=== PATIENT | female | born 2000 | race Caucasian/White ===

== ENCOUNTER 2023-10-16 09:59 | Outpatient (AMB) | payer BC, SELFPAY ==
--- NOTE | 2023-10-16 10:04 | A.OFFPC_ITS ---
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 Intake Note: pt is here for new patient appointment to establish care, patient states last pap was 09/2021 done while at [facility] Certified Phlebotomy Technician Required: No Allergies amoxicillin Allergy (Mild, Verified 10/16/23 10:40) Swelling shellfish derived Allergy (Mild, Verified 10/16/23 10:40) Difficulty Swallowing sulfamethoxazole [From Bactrim] Allergy (Mild, Verified 10/16/23 10:40) Swelling trimethoprim [From Bactrim] Allergy (Mild, Verified 10/16/23 10:40) Swelling Medication List - Last Reconciled 10/16/23 by Gladis Daley MD desvenlafaxine succinate ER 100 mg PO QAM Tobacco use date assessed: 10/16/23 Dental Screening Dental Screen Date: 10/16/23 Did you have a dental visit in the last 12 months?: Yes Did you have a dental problem in the last 6 months where you did not have access to dental care?: No Was dental information given to patient?: Patient has dentist HPI 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 She had her last Pap smear at [facility] when she was in 2021, which came back normal per patient. Has depression and anxiety currently followed by psychiatry currently on Pristiq which has been helping. [facility] Medical History (Updated 10/16/23 @ 10:59 by Gladis Daley MD) Refused influenza vaccine Hx of Anxiety and depression Cholestasis during Hyperemesis gravidarum Surgical History Hx of colonoscopy Family History (Updated 10/16/23 @ 10:11 by Richie Gurrola CMA) Mother Sjogren syndrome Father Colon cancer Social History (Updated 10/16/23 @ 10:11 by Richie Gurrola CMA) Housing: Apartment Alcohol intake: never Patient Tobacco Use Status: Never used Tobacco e-Cigarette/Vaping Use: Never Used Substance Use Type: Marijuana service: No Current occupational status: unemployed Current occupational exposures/hazards: No Cognitive needs: No Hearing needs: No Vision needs: No Female Reproductive History Menstrual Date of last menstrual period: 10/09/23 control method: none Total pregnancies: 2 Full term: 1 Number of Living Children: 1 Ab induced: 1 History of abnormal pap smear: No Other: seen by OBGYN in [facility] Questionnaire PHQ-9 Over the last 2 weeks, how often have you been bothered by any of the following problems? 1. Little interest or pleasure in doing things: not at all 2. Feeling down, depressed, or hopeless: more than half the days 3. Trouble falling or staying asleep, or sleeping too much: several days 4. Feeling tired or having little energy: more than half the days 5. Poor appetite or overeating: nearly every day 6. Feeling bad about yourself - or that you are a failure or have let yourself or your family down: more than half the days 7. Trouble concentrating on things, such as reading the newspaper or watching television: several days 8. Moving or speaking so slowly that other people could have noticed. Or the opposite - being so fidgety or restless that you have been moving around a lot more than usual: not at all 9. Thoughts that you would be better off or of hurting yourself in some way: not at all Total score: 11 Depression Screening Interpretation: Positive ([facility] [place] [facility] Depression Screening Follow- up: Existing condition, In treatment and Community Mental Health Worker F/U Depression Screening Done: Yes 67239 - PHQ-9 Billing: Yes Source: Developed by Drs. Nimesh Castillo, Jada Estrada, Jose Luis Bonilla and colleagues, with an educational hardy from [employer]. Thrive Questionnaire Date Thrive assessed: 10/16/23 I am a: Patient What is your living situation today?: I have a steady place to live Within the past 12 months, did the food you bought not last and you didn't have the money to get more?: Never true Within the past 12 months, did you worry whether your food would run out before you got money to buy more?: Never true Do you have trouble paying for medicines?: No Do you have trouble getting transportation to medical appointments?: No Do you have trouble paying your heating and electricity bill?: Yes Do you have trouble taking care of your child, family member or friend?: No Do you have trouble with day-to-day activities such as bathing, preparing meals, shopping, managing finances, etc.?: No Are you currently unemployed and looking for a job?: No Are you interested in more education?: No Please select the resources that you would like help with: Utilities Currently or been in a relationship where the following occur: No concerns reported THRIVE Score: 1 AUDIT C Alcohol Use Questionnaire (AUDIT-C) 1. How often do you have a drink containing alcohol?: Monthly or less 2. How many drinks containing alcohol do you have on a typical day when you are drinking?: 1 or 2 3. How often do you have six or more drinks on one occasion?: Never Total Score: 1 Score Reviewed/Action Taken: Yes MALINDA-7 AMB Questionnaire MALINDA-7 Date MALINDA - 7 assessed: 10/16/23 Feeling nervous, anxious, or on edge: 3 = Nearly every day Not being able to stop or control worryin = Nearly every day Worrying too much about different things: 1 = Several days Trouble relaxin = Nearly every day Being so restless that it is hard to sit still: 2 = More than half the days Becoming easily annoyed or irritable: 3 = Nearly every day Feeling afraid as if something awful might happen: 2 = More than half the days Total MALINDA-7 score (0-4 normal; 5-9 mild; 10-14 moderate; 15-21 severe): 17 Source: Developed by Drs. Nimesh Castillo, Jada Estrada, Jose Luis Bonilla and colleagues, with an educational hardy from [employer]. MALINDA-7 Assessment Billing MALINDA-7 Assessment Tool: MALINDA-7 Assessment 21071 Review of Systems Const Denies body aches, Denies fatigue, Denies fever(s), Denies headache(s) and Denies weakness Eyes Denies change in vision ENT Denies dizziness, Denies headache(s), Denies nasal congestion and Denies nasal discharge Card Denies chest pain, Denies lightheadedness, Denies palpitations and Denies dyspnea Resp Denies chest congestion, Denies cough, Denies dyspnea and Denies wheezing GI Denies abdominal pain, Denies change in bowel habits and Denies heartburn Denies hematuria, Denies urinary frequency, Denies dysuria and Denies urinary urgency Musc Reports no additional complaints Skin/Breast Denies breast pain, Denies breast mass, Denies lesions and Denies rash Neuro Denies dizziness, Denies headache(s) and Denies weakness Psych Reports as per HPI Endo Denies fatigue, Denies polydipsia, Denies polyuria and Denies palpitations Cade/Lymph Denies easy bruising Aller/Immun Denies seasonal rhinorrhea and Denies wheezing Physical exam (Primary Care) Vital Signs: Last Vital Signs Pulse 84 10/16/23 10:06 BP 130/80 10/16/23 10:06 Pulse Ox 98 10/16/23 10:06 BMI result Body Mass Index 26.6 Tobacco/Smoking Status: Tobacco use Status Tobacco use date assessed 10/16/23 10/16/23 10:14 Patient Tobacco Use Status Never used Tobacco 10/16/23 10:14 e-Cigarette/Vaping Use Never Used 10/16/23 10:14 PHQ-9: PHQ-9 Score PHQ-9: Total score 11 10/16/23 10:56 Depression Screening Interpretation: Positive (Currently seeing psychiatrist in [place] [facility] , currently on Pristiq) Depression Screening Follow- up: Existing condition, In treatment and Community Mental Health Worker F/U Thrive Assessment: Date of Thrive Assessment Date Thrive assessed 10/16/23 10/16/23 10:14 Currently or been in a relationship where the following occur: No concerns reported Const General: no acute distress and alert Orientation/consciousness: patient oriented x3 HENMT Head: Yes normocephalic and Yes atraumatic Ears: external ears normal, TM's normal bilaterally and EAC's normal General nose exam: Normal external nose present and No nasal discharge present Face and sinus: Yes face symmetric Mouth: Normal oral and palatal mucosa present, lip normal, tongue normal, oropharynx normal and moist mucous membranes Eyes General: appearance normal, both eyes and all related structures Eyelids: Yes eyelids normal Conjunctivae: conjunctivae normal Sclerae: sclerae normal Pupils: Equal, round and reactive pupils present EOM: EOMs intact bilaterally Neck Neck: Yes full ROM, Yes no lymphadenopathy and Yes supple Thyroid: Thyroid normal Chest Breast/axilla palpation: normal palpation of the breasts Resp Effort & Inspection: normal respiratory effort and able to speak in complete sentences Auscultation: clear to auscultation bilaterally Cardio Rate: regular rate Rhythm: regular rhythm Heart sounds: S1 normal heart sound present and S2 normal heart sound present GI Palpation (GI): Soft to palpation, nontender, no guarding and no masses Auscultation: normal bowel sounds General: Yes no CVA tenderness Back/Spine/Pelvis Back: no CVA tenderness and No back tenderness Skin General skin exam: no rashes or lesions noted Neuro General: patient oriented x3, gait normal, moves all extremities, Normal light touch and pain sensation, no focal motor deficits and CN's II-XI intact bilaterally Cranial nerves: Yes Equal, round and reactive pupils present Cognition (Neuro): normal cognition Gait exam (Neuro): Normal gait present Motor exam (neuro): 5/5 motor strength present throughout Extrem General: Yes normal to inspection, Yes full ROM, Yes no joint enlargement, Yes no pedal edema and Yes normal gait Psych Appearance: grossly normal and well kempt Mental Status: mental status grossly normal Speech and movement: Normal speech and movement present Affect: normal affect Attitude: cooperative Thought process: Normal thought process present Thought content: Normal thought content present Assessment and Plan Assessment & Plan (1) Annual visit for general adult medical examination with abnormal findings: Code(s): Z00.01 - Encounter for general adult medical examination with abnormal findings Plan: Will check appropriate labs. Recommended regular dental visit every 6 months and regular eye exams, at least every 2 years. Take adequate calcium in diet and vitamin-D 3 at 2000 IU per cap once a day, in addition to weight-bearing exercises to help maintain good muscle tone and weight control. Instructed to do self-breast exam, and recommended to get yearly mammogram, starting at age 40. Had COVID vaccines in the past does not want to get booster, declines flu vaccine, up-to-date Tdap (2) Anxiety and depression: Code(s): F41.9 - Anxiety disorder, unspecified; F32.A - Depression, unspecified Plan: Currently followed by psychiatry and sees therapist regularly, on Pristiq (3) Refused influenza vaccine: Code(s): Z28.21 - Immunization not carried out because of patient refusal (4) Advanced directives, counseling/discussion: Code(s): Z71.89 - Other specified counseling Plan: Initiated the conversation about Advanced Directives. Advanced Directives help patients prepare for current and future decisions about their medical treatment and place of care. Discussed with patient that it is a process where a patients current condition and prognosis are reviewed, their wishes for information regarding their illness are elicited, and likely medical dilemmas are presented and options discussed. Healthcare proxy form completed today. The form can be amended as needed, reviewed yearly and make changes as needed Orders: Orders Aspartate Amino Transferase 10/16/23 Z83.49 - Family history of other endocrine, nutritional and metabolic diseases Alanine Aminotransferase 10/16/23 Z83.49 - Family history of other endocrine, nutritional and metabolic diseases Lipid Panel 10/16/23 Z83.49 - Family history of other endocrine, nutritional and metabolic diseases Vitamin D 25-OH Total 10/16/23 Z83.49 - Family history of other endocrine, nutritional and metabolic diseases Complete Blood Count Auto Diff 10/16/23 Z83.49 - Family history of other endocr ine, nutritional and metabolic diseases Basic Metabolic Panel Fasting 10/16/23 Z83.49 - Family history of other endocrine, nutritional and metabolic diseases TSH reflex Free T4 10/16/23 Z83.49 - Family history of other endocrine, nutritional and metabolic diseases Coding Level of Care Code New Pt Prev Care 18-39yr([id number] Diagnoses Annual visit for general adult medical examination with abnormal findings Z00.01 Anxiety and depression F41.9; F32.A Refused influenza vaccine Z28.21 Advanced directives, counseling/discussion Z71.89 Additional Codes MALINDA-7 Assessment Billing - MALINDA-7 Assessment Tool: MALINDA-7 Assessment 54548 ([id number])
[2023-10-16 10:06] VITALS: BP 130/80; PULSE 84; O2SAT 98; BMI 26.6
== END 2023-10-16 11:04 | disposition home or self-care (01) ==
PROVIDERS: Visit Provider Internal Medicine
DX: Z00.00 Encounter for general adult medical examination without abnormal findings (principal); F41.9 Anxiety disorder, unspecified; F32.A Depression, unspecified; Z28.21 Immunization not carried out because of patient refusal; Z71.89 Other specified counseling
CPT/HCPCS: 99385